=== PATIENT | female | born 1945 | race Caucasian/White ===

== ENCOUNTER 2019-02-10 08:01 | Inpatient (IN) | payer MEDICARE, BC ==
[2019-02-04 15:28] LABS: BASOPHILS # (AUTO) 0.1 X10'3 (0-0.2); BASOPHILS % (AUTO) 1.1 % (0-1); EOSINOPHILS # (AUTO) 0.2 X10'3 (0-0.9); EOSINOPHILS % (AUTO) 4.1 % (0-6); LYMPHOCYTES # (AUTO) 1.4 X10'3 (1.1-4.8); LYMPHOCYTES % (AUTO) 26.4 % (21-51); MEAN CORPUSCULAR HEMOGLOBIN 32.2 PG (27.0-31.0); MEAN CORPUSCULAR VOLUME 97.7 FL (78-98); MEAN PLATELET VOLUME 8.2 FL (7.4-10.4); MONOCYTES # (AUTO) 0.6 X10'3 (0-0.9); NEUTROPHILS % (AUTO) 56.4 % (42-75); PRE OP HEMATOCRIT 43.2 % (35.0-45.0); PRE OP HEMOGLOBIN 14.2 g/dL (12.0-16.0); PRE OP PLATELET COUNT 251 X10'3 (140-440); RED BLOOD COUNT 4.42 X10'6 (4.20-5.60); RED CELL DISTRIBUTION WIDTH 13.8 % (11.5-14.5)
[2019-02-04 15:48] LABS: ALBUMIN 3.3 G/DL (3.4-5.0); ALBUMIN/GLOBULIN RATIO 0.9 (1.1-1.5); ALKALINE PHOSPHATASE 121 IU/L (46-116); BLOOD UREA NITROGEN 23 MG/DL (7-18); CALCIUM 9.2 MG/DL (8.5-10.1); CHLORIDE 107 MMOL/L (99-107); CREATININE 0.92 MG/DL (0.40-0.90); PRE OP ALT 25 U/L (30-65); PRE OP ANION GAP 6 (8-16); PRE OP AST 19 U/L (10-37); PRE OP BILIRUB, TOTAL 0.4 MG/DL (0.0-1.0); PRE OP GLUCOSE 84 MG/DL (70-104); PRE OP POTASSIUM 4.2 MMOL/L (3.4-5.1); PRE OP SODIUM 142 MMOL/L (135-145); TOTAL CARBON DIOXIDE 28.9 MMOL/L (24-32); eGFR 60 ML/MIN
[2019-02-04 16:17] LABS: HEMOGLOBIN A1C 6.3 % (4.5-6.2)
[~2019-02-10] VITALS: Ht 165.1 cm; Wt 88.5 kg
[2019-02-10] VITALS (21 sets, daily range): BP systolic 113–177; BP diastolic 52–85
[~2019-02-10 08:01] MED LIST: ACET-1017 PO; ALEN70TA60 PO; ASPI-529 PO; ATOR80TA PO; CALC-97 PO; CARV-50 PO; FERGLU300T PO; INSU100C10 SQ; LANTUS SUBCUT; LEVO150T8 PO; LOSA25TA96 PO
[2019-02-10] MEDS ORDERED: LIDOcaine 1% (10mg/ml) 2ml vial ONE (09:19)
[2019-02-10] MEDS: dextrose 5%-lactated ringers 1,000 ML IV SCH ×2 (09:41→20:00)
[2019-02-10] MEDS ORDERED: carVEDilol 12.5mg tablet PO ONE (10:00)
[2019-02-10] MEDS ORDERED: acetaminophen 325mg tablet PO ONE (12:00)
[2019-02-10] MEDS ORDERED: cefazolin/dext.iso 2gm/50ml 50 ML IV ONE (12:00)
[2019-02-10] MEDS ORDERED: oxyCODONE SR 10mg (sust. release) tab PO ONE (12:00)
[2019-02-10] MEDS ORDERED: metoclopramide 5 mg/ml inj IV ONE (12:00)
[2019-02-10] MEDS ORDERED: vancomycin inj 1,500 MG in normal saline 300ml IV soln IV ONE (12:00)
[2019-02-10] MEDS ORDERED: famotidine 20mg tablet PO ONE (12:00)
[2019-02-10] MEDS ORDERED: insulin Lispro (HumaLOG) vial - multi-dose SQ ONE (12:00)
[2019-02-10] MEDS ORDERED: DOCUMENT DATE & TIME OF BETA-BLOCKER PO ONE (12:00)
[2019-02-10] MEDS ORDERED: gabapentin 300mg capsule PO ONE (12:00)
[2019-02-10] MEDS ORDERED: tranexamic acid inj. 1,000 MG in normal saline 100 ML IV ONE (12:00)
[2019-02-10] MEDS ORDERED: ringers solution, lacted 1,000 ML IV SCH ×2 (12:00→14:20)
[2019-02-10] MEDS ORDERED: vancomycin 1,000mg inj ONE (12:29)
[2019-02-10] MEDS ORDERED: ceFAZolin 1000mg inj ONE (12:29)
[2019-02-10] MEDS ORDERED: midazolam 2 mg/2 ml injection ONE (12:39)
[2019-02-10] MEDS ORDERED: fentaNYL/PF 50MCG/1 ML 2ML syringe ONE (12:39)
[2019-02-10] MEDS ORDERED: LIDOcaine 2% (20mg/ml) 5ml vial ONE (12:40)
[2019-02-10] MEDS ORDERED: propofol inj 20 ML IV ONE (12:40)
[2019-02-10] MEDS ORDERED: ROPIVAcaine 0.5% (5mg/ml) 30ml vial ONE (12:40)
[2019-02-10] MEDS ORDERED: sevoflurane 250ml liquid IH ONE (12:42)
[2019-02-10] MEDS ORDERED: INSULIN R 100 UNIT in NS 100ML (1 UNIT/1 ML) BAG IV ONE (12:42)
[2019-02-10] MEDS ORDERED: ePHEDrine 50MG/ML INJ. ONE (13:41)
[2019-02-10] MEDS ORDERED: phenylephrine 10mg/ml inj. ONE (13:43)
[2019-02-10] MEDS ORDERED: ondansetron/PF 4mg/2ml inj ONE (13:59)
[2019-02-10] MEDS ORDERED: morphine 4 MG/ML inj SYRINge IV PRN ×2 (14:20)
[2019-02-10] MEDS ORDERED: ondansetron/PF 4mg/2ml inj IV PRN ×2 (14:20→15:25)
[2019-02-10] MEDS ORDERED: fentaNYL/PF 50MCG/1 ML 2ML syringe IV PRN ×2 (14:20)
[2019-02-10] MEDS ORDERED: labetalol 20mg/4ml (5mg/ml) syringe IV PRN (14:20)
[2019-02-10] MEDS ORDERED: ROPIVAcaine 0.2%/PF PAIN PUMP 400 ML IJ SCH (14:37)
[2019-02-10] MEDS ORDERED: dexamethasone sod phosphate 4mg/ml inj. ONE (15:23)
[2019-02-10] MEDS ORDERED: acetaminophen 325mg tablet PO PRN (15:25)
[2019-02-10] MEDS ORDERED: bisacodyl 10mg suppository rectal RC PRN (15:25)
[2019-02-10] MEDS ORDERED: diphenhydrAMINE 25mg capsule PO PRN ×2 (15:25)
[2019-02-10] MEDS ORDERED: magnesium hydroxide 30ml (MOM) UD suspension PO PRN (15:25)
[2019-02-10] MEDS ORDERED: HYDROmorphone inj. 0.5 MG/0.5 ML DISP.SYRIN IV PRN (15:25)
[2019-02-10] MEDS ORDERED: oxyCODONE IR 5mg (immed. release) tablet PO PRN ×2 (15:25)
[2019-02-10] MEDS ORDERED: HYDROmorphone 1 mg/ml syringe IV PRN (15:25)
[2019-02-10] MEDS ORDERED: labetalol 20mg/4ml (5mg/ml) syringe IV ONE (15:27)
--- NOTE | 2019-02-10 15:37 | NUR ---
Received from OR via , accompanied by Anesthesiologist DR WILLIS and report given by Anesthesiologist. PT DROWSY, DENIES PAIN, RIGHT SHOULDER W/DRSG, ICE PACK, SHOULDER WRAP, CDI, SLING. PT HAS CONTINUOUS BLOOD GLUCOSE MONITORING DEVICE IN LEFT UPPER ABDOMEN, MONITOR DISPLAYS BS 94. Addendum: 02/10/19 at 1611 by Carol Adan RN Amended: Links added.
[2019-02-10] MEDS: hydrALAZINE 20mg/ml inj. IV PRN ×2 (15:57→16:12)
--- NOTE | 2019-02-10 16:29 | NUR ---
RECEIVED REPORT FROM AMEYA CRUM IN RECOVERY
--- NOTE | 2019-02-10 17:03 | NUR ---
PT ARRIVED ON FLOOR ON ORTHO BED
--- NOTE | 2019-02-10 17:05 | NUR ---
PT HAS HER OWN INSULIN PUMP, PUMP SHOWED THAT PT BG IS 103 AT THIS TIME, CONTINUE TO MONITOR
--- NOTE | 2019-02-10 17:07 | NUR ---
Report called to receiving nurse. Transferred via BED, 1 BAG OF PERSONAL Belongings, GLASSES SENT W/PT TO ROOM 4009B, RECEIVING RN AT BEDSIDE TO RECEIVE PT, BLL, CALL LIGHT GIVEN, SIDE RAILS UP X 2, BS 96 PER PTS MONITORING DEVICE. Special Issues communicated to receiving nurse. YES. Addendum: 02/10/19 at 1715 by Carol Adan RN Amended: Links added.
[2019-02-10] MEDS: ceFAZolin 1GM/D5W- ADD-VANTAGE 50 ML IV SCH (17:13)
--- NOTE | 2019-02-10 18:34 | NUR ---
GAVE REPORT TO AMEYA JOHNSON
[2019-02-10] MEDS: potassium cl 20mEq in 1/2 NS 1,000 ML IV SCH ×2 (19:41→23:25)
[2019-02-10] MEDS ORDERED: vancomycin/NS 1 GM ADD-VANTAGE 250 ML IV SCH (20:00)
[2019-02-10] MEDS: carVEDilol 12.5mg tablet PO SCH (20:42)
[2019-02-10] MEDS: acetaminophen 325mg tablet PO SCH (20:44)
[2019-02-10] MEDS ORDERED: atorvastatin 20mg tablet PO SCH (21:00)
[2019-02-10] MEDS ORDERED: insulin glargine (Lantus) pen - multi-dose SQ SCH (21:00)
[2019-02-10] MEDS ORDERED: sennosides 8.6mg tablet PO SCH (21:00)
[2019-02-10] MEDS: gabapentin 300mg capsule PO SCH (21:06)
[2019-02-11] MEDS: ceFAZolin 1GM/D5W- ADD-VANTAGE 50 ML IV SCH
[2019-02-11] MEDS ORDERED: ceFAZolin 1GM/D5W- ADD-VANTAGE 50 ML IV SCH (01:45)
[2019-02-11 02:00] VITALS: BP 129/57
[2019-02-11] MEDS: acetaminophen 325mg tablet PO SCH ×3 (02:05→11:13)
[2019-02-11 03:13] VITALS: BP 129/57
[2019-02-11] MEDS: dextrose 5%-lactated ringers 1,000 ML IV SCH ×2 (04:00→12:00)
[2019-02-11] MEDS: insulin Lispro (HumaLOG) vial - multi-dose SQ SCH ×2 (05:25→08:56)
[2019-02-11] MEDS: potassium cl 20mEq in 1/2 NS 1,000 ML IV SCH (05:35)
--- NOTE | 2019-02-11 06:00 | NUR ---
Patient in room ORTHO 4009. I have received report from [place] and had the opportunity to ask questions and assume patient care.
[2019-02-11 06:10] LABS: BASOPHILS % (AUTO) 0.1 % (0-1); EOSINOPHILS % (AUTO) 0 % (0-6); HEMATOCRIT 39.5 % (35.0-45.0); HEMOGLOBIN 13.1 g/dl (12.0-16.0); LYMPHOCYTES # (AUTO) 0.6 X10'3 (1.1-4.8); LYMPHOCYTES % (AUTO) 7.5 % (21-51); MEAN CORPUSCULAR HEMOGLOBIN 32.5 PG (27.0-31.0); MEAN CORPUSCULAR HGB CONC 33.1 g/dL (33.0-36.5); MEAN CORPUSCULAR VOLUME 98.1 FL (78-98); MEAN PLATELET VOLUME 8.4 FL (7.4-10.4); MONOCYTES # (AUTO) 0.4 X10'3 (0-0.9); MONOCYTES % (AUTO) 4.6 % (2-12); NEUTROPHILS # (AUTO) 7.1 X10'3 (1.8-7.7); NEUTROPHILS % (AUTO) 87.8 % (42-75); PLATELET COUNT 228 X10'3 (140-440); RED BLOOD COUNT 4.02 X10'6 (4.20-5.60); RED CELL DISTRIBUTION WIDTH 13.8 % (11.5-14.5); WHITE BLOOD COUNT 8.1 X10'3 (4.5-11.0)
[2019-02-11 06:17] VITALS: BP 119/53
[2019-02-11 06:18] LABS: ANION GAP 14 (8-16); CHLORIDE 102 MMOL/L (99-107); POTASSIUM 5.8 MMOL/L (3.5-5.1); SODIUM 134 MMOL/L (135-145); TOTAL CARBON DIOXIDE 18.1 MMOL/L (24-32)
[2019-02-11] MEDS ORDERED: levoTHYROXINE 75mcg tablet PO SCH (07:00)
[2019-02-11] MEDS ORDERED: acetaminophen 325mg tablet PO SCH (08:00)
[2019-02-11] MEDS ORDERED: ferrous gluconate 324mg tablet PO SCH (08:00)
[2019-02-11] MEDS ORDERED: losartan 50mg tablet PO SCH (08:00)
[2019-02-11] MEDS ORDERED: calcium carbonate/vitamin D3 tablet PO SCH (08:00)
[2019-02-11] MEDS: gabapentin 300mg capsule PO SCH (08:02)
[2019-02-11] MEDS ORDERED: aspirin 81mg tab.chew PO SCH (08:30)
[2019-02-11] MEDS ORDERED: aspirin 325mg tablet PO SCH (08:30)
[2019-02-11] MEDS: carVEDilol 12.5mg tablet PO SCH (08:47)
[2019-02-11] MEDS ORDERED: [UNRECOGNIZED DRUG - REMARK] PO NR (10:00)
[2019-02-11 10:07] VITALS: BP 137/72
--- NOTE | 2019-02-11 11:45 | NUR ---
Reviewed discharge instructions with pt. Pt verbalized understanding. Pt is alert, oriented and does not have c/o pain at this time. All of pt's belongings were returned to pt. Pt was wheeled downstairs to be driven home by her sister.
[2019-02-11] MEDS ORDERED: celeCOXIB 100mg capsule PO SCH (20:00)
[2019-02-12] MEDS ORDERED: acetaminophen 325mg tablet PO PRN (15:25)
== END 2019-02-11 12:05 | disposition home or self-care (01) | DRG 483 ==
LOC: PAS IN 08:01 → EDSTATUS 12:45 → ORTHO 4S 17:03
PROVIDERS: ADMIT Orthopaedic Surgery; ATTEND Orthopaedic Surgery
PROC: 3E0T3BZ Introduction of Anesthetic Agent into Peripheral Nerves and Plexi, Percutaneous Approach (ICD-10-PCS; 2019-02-10)
PROC: 0RRJ0JZ Replacement of Right Shoulder Joint with Synthetic Substitute, Open Approach (ICD-10-PCS; principal; 2019-02-10 12:42)
DX: M19.011 Primary osteoarthritis, right shoulder (principal); E03.9 Hypothyroidism, unspecified; E78.5 Hyperlipidemia, unspecified; I10 Essential (primary) hypertension; E10.9 Type 1 diabetes mellitus without complications; E66.9 Obesity, unspecified; M81.0 Age-related osteoporosis without current pathological fracture; Q68.8 Other specified congenital musculoskeletal deformities; Z85.3 Personal history of malignant neoplasm of breast; Z90.12 Acquired absence of left breast and nipple; Z68.32 Body mass index [BMI] 32.0-32.9, adult; Z88.2 Allergy status to sulfonamides; Z88.5 Allergy status to narcotic agent; Z79.899 Other long term (current) drug therapy; Z79.4 Long term (current) use of insulin; Z79.890 Hormone replacement therapy
CPT/HCPCS: 36415; 73020; 73030; 80051; 80053; 83036; 84443; 85025; 87081; 93005; 97110; 97116; 97161; A4215; A4565; A4618; A7000; C1713; C1776; C9250; G0378; J0360; J0690; J1100; J1815; J2001; J2250; J2370; J2405; J2704; J2765; J2795; J3010; J3370; J3480; J3490; J7120; J7121

== ENCOUNTER 2019-11-26 18:03 | Inpatient (IN) | payer MEDICARE, BC ==
[~2019-11-26] VITALS: Ht 165.1 cm; Wt 78.2 kg
[2019-11-26] MEDS ORDERED: normal saline 1000ml 1,000 ML IV ONE (20:10)
[2019-11-26 20:16] LABS: PARTIAL THROMBOPLASTIN TIME 23 SECONDS (22-32)
--- NOTE | 2019-11-26 20:20 | NUR ---
PT GIVEN WARM BLANKETS
[2019-11-26 20:28] LABS: ALANINE AMINOTRANSFERASE 17 U/L (12-78); ALBUMIN/GLOBULIN RATIO 0.9 (1.1-1.5); ALKALINE PHOSPHATASE 88 IU/L (46-116); ANION GAP 10 (8-16); ASPARTATE AMINO TRANSFERASE 22 U/L (10-37); BILIRUBIN,TOTAL 0.4 MG/DL (0.1-1.0); BLOOD UREA NITROGEN 19 MG/DL (7-18); BUN/CREATININE RATIO 9.7 (6.6-38.0); CALCIUM 9.4 MG/DL (8.5-10.1); CHLORIDE 106 MMOL/L (99-107); CREATININE 1.96 MG/DL (0.40-0.90); GLUCOSE 213 MG/DL (70-104); POTASSIUM 4.3 MMOL/L (3.5-5.1); SODIUM 139 MMOL/L (135-145); TOTAL CARBON DIOXIDE 22.6 MMOL/L (24-32); TOTAL PROTEIN 6.3 G/DL (6.4-8.2); TROPONIN I 0.15 NG/ML (0.0-0.05); eGFR 25 ML/MIN
--- NOTE | 2019-11-26 21:46 | NUR ---
[facility] [phone]
[2019-11-26] MEDS ORDERED: aspirin 325mg tablet PO ONE (21:50)
[2019-11-26 22:08] LABS: BASOPHILS % (AUTO) 0.7 % (0-1); EOSINOPHILS % (AUTO) 0.6 % (0-6); HEMATOCRIT 36.4 % (35.0-45.0); LYMPHOCYTES # (AUTO) 0.8 X10'3 (1.1-4.8); LYMPHOCYTES % (AUTO) 18.3 % (21-51); MEAN CORPUSCULAR HEMOGLOBIN 38.3 PG (27.0-31.0); MEAN CORPUSCULAR HGB CONC 32.9 g/dL (33.0-36.5); MEAN CORPUSCULAR VOLUME 116.3 FL (78-98); MEAN PLATELET VOLUME 7.7 FL (7.4-10.4); MONOCYTES # (AUTO) 0.3 X10'3 (0-0.9); MONOCYTES % (AUTO) 7.9 % (2-12); NEUTROPHILS # (AUTO) 3.2 X10'3 (1.8-7.7); NEUTROPHILS % (AUTO) 72.5 % (42-75); PLATELET COUNT 163 X10'3 (140-440); RED BLOOD COUNT 3.13 X10'6 (4.20-5.60); RED CELL DISTRIBUTION WIDTH 15.3 % (11.5-14.5); WHITE BLOOD COUNT 4.4 X10'3 (4.5-11.0)
[2019-11-26] MEDS ORDERED: heparin 25,000 UNIT/250ml bag 250 ML IV SCH (22:29)
[2019-11-26] MEDS ORDERED: heparin 10,000 units/1 ML INJ IV ONE (22:30)
[2019-11-26] MEDS ORDERED: heparin 10,000 units/1 ML INJ IV PRN (22:30)
[2019-11-26 22:38] LABS: PLATELET ESTIMATE NORMAL
[2019-11-26 23:28] LABS: CLARITY,URINE CLEAR (Clear); COLOR,URINE YELLOW (Yellow); GLUCOSE, URINE 250 mg/dl (Neg); KETONES,URINE 40 mg/dl (Neg); LEUKOCYTE ESTERASE ,URINE TRACE (Neg); NITRITES, URINE NEGATIVE (Neg); OCCULT BLOOD,URINE NEGATIVE (Neg); PH,URINE 5.5 (4.8-8.0); PROTEIN,URINE NEGATIVE (Neg); UROBILINOGEN,URINE 0.2 E.U/dL (0.2-1.0)
[2019-11-26 23:31] LABS: UA COLLECTION TYPE CLN CATCH MIDSTREAM
[2019-11-26 23:32] LABS: BACTERIA,URINE FEW /HPF (Neg); HYALINE CASTS 0-3 /LPF (NEGATIVE); MUCUS STRANDS FEW /LPF (Neg); RBC,URINE 0-2 /HPF (0-2); SQUAMOUS EPITHELIAL CELL,UR FEW /LPF (FEW)
[2019-11-26] MEDS ORDERED: ABEM150T PO (23:49)
[2019-11-26] MEDS ORDERED: LEVO150T61 PO (23:49)
[2019-11-26] MEDS ORDERED: LETR2.5T7 PO (23:49)
[2019-11-26] MEDS ORDERED: FURO20TA4 PO (23:49)
[2019-11-27] MEDS ORDERED: potassium Cl 20 mEq SR tablet PO PRN ×2 (01:25)
[2019-11-27] MEDS ORDERED: dextrose ORAL solution 15 GM/59 ML bottle PO PRN ×2 (01:25)
[2019-11-27] MEDS ORDERED: glucagon, human recombinant 1mg kit SUBCUT PRN (01:25)
[2019-11-27] MEDS ORDERED: acetaminophen 325mg tablet PO PRN (01:25)
[2019-11-27] MEDS ORDERED: MESSAGE TO PHARMACY PO ONE (01:25)
[2019-11-27] MEDS ORDERED: potassium CL 10mEq/100ml bag 100 ML IV PRN ×2 (01:25)
[2019-11-27] MEDS ORDERED: ondansetron/PF 4mg/2ml inj IV PRN (01:25)
[2019-11-27] MEDS ORDERED: dextrose 50%-water 50ml dispensing syringe IV PRN ×2 (01:25)
[2019-11-27] MEDS ORDERED: mag hydrox/Alum hydrox/simeth 30ml oral suspension PO PRN (01:25)
[2019-11-27] MEDS ORDERED: magnesium hydroxide 30ml (MOM) UD suspension PO PRN (01:25)
[2019-11-27] MEDS: normal saline 1000ml 1,000 ML IV SCH ×3 (01:53→21:29)
--- NOTE | 2019-11-27 02:30 | NUR ---
Patient in room ED 15. I have received report from AMEYA Ragland and had the opportunity to ask questions and assume patient care.
[2019-11-27 03:54] VITALS: BP 131/38
[2019-11-27 05:30] LABS: HEMOGLOBIN A1C 6.5 % (4.5-6.2)
[2019-11-27 05:46] LABS: BASOPHILS % (AUTO) 1.4 % (0-1); EOSINOPHILS % (AUTO) 1.1 % (0-6); HEMATOCRIT 29.4 % (35.0-45.0); HEMOGLOBIN 9.9 g/dl (12.0-16.0); LYMPHOCYTES # (AUTO) 0.8 X10'3 (1.1-4.8); LYMPHOCYTES % (AUTO) 23.1 % (21-51); MEAN CORPUSCULAR HEMOGLOBIN 38.2 PG (27.0-31.0); MEAN CORPUSCULAR HGB CONC 33.7 g/dL (33.0-36.5); MEAN CORPUSCULAR VOLUME 113.2 FL (78-98); MEAN PLATELET VOLUME 8.1 FL (7.4-10.4); MONOCYTES # (AUTO) 0.3 X10'3 (0-0.9); MONOCYTES % (AUTO) 9.3 % (2-12); NEUTROPHILS # (AUTO) 2.3 X10'3 (1.8-7.7); NEUTROPHILS % (AUTO) 65.1 % (42-75); PLATELET COUNT 175 X10'3 (140-440); RED CELL DISTRIBUTION WIDTH 14.6 % (11.5-14.5); WHITE BLOOD COUNT 3.5 X10'3 (4.5-11.0)
--- NOTE | 2019-11-27 06:10 | NUR ---
Patient in room PCU 3012. I have received report from Angela and had the opportunity to ask questions and assume patient care.
--- NOTE | 2019-11-27 06:32 | NUR ---
Problems reprioritized. Patient report given, questions answered & plan of care reviewed with AMEYA Turk.
--- NOTE | 2019-11-27 07:00 | NUR ---
Lab called PTT from 0507 was inconclusive. Notified that someone will be sent up for a redraw on opposite arm.
[2019-11-27] MEDS: heparin, porcine 5000 units/ml vial SQ SCH ×2 (08:00→21:13)
[2019-11-27] MEDS ORDERED: ABEMACICLIB 150 MG PO SCH (08:00)
[2019-11-27] MEDS: K and/or MAG REPLACEMENT MC SCH ×2 (08:00→20:00)
[2019-11-27] MEDS: ABEMACICLIB 150 MG PO SCH (08:00)
[2019-11-27] MEDS: ferrous gluconate 324mg tablet PO SCH (09:02)
[2019-11-27] MEDS: losartan 50mg tablet PO SCH (09:02)
[2019-11-27] MEDS: calcium carbonate/vitamin D3 tablet PO SCH (09:02)
[2019-11-27] MEDS: levoTHYROXINE 75mcg tablet PO SCH (09:02)
[2019-11-27] MEDS: carVEDilol 12.5mg tablet PO SCH ×2 (09:02→21:11)
[2019-11-27] MEDS: furosemide 20MG tablet PO SCH (09:03)
[2019-11-27] MEDS: aspirin 81mg tablet.DR PO SCH (09:03)
[2019-11-27] MEDS: insulin Lispro (HumaLOG) vial - multi-dose SQ SCH ×3 (09:14→19:07)
[2019-11-27 09:34] LABS: CHOL/HDL RATIO 1.9 (0.00-4.99); CHOLESTEROL 116 MG/DL (0-200); HDL CHOLESTEROL 62 MG/DL (35-60); LDL CHOLESTEROL 45 MG/DL (50-100); TRIGLYCERIDES 55 MG/DL (20-135)
[2019-11-27 11:00] VITALS: BP 135/35
--- NOTE | 2019-11-27 11:08 | NUR ---
Malnutrition consult: Pt reports wt loss with decreased appetite per malnutrition risk screen with RN. Pt with wt hx of 88.5 kg taken 02/10/19 with standing scale, current standing scaled wt is 78.18 kg. This is non-significant wt loss of 11% in nine months. Pt currently on a CHO controlled diet documented with 75-100% PO intake first meal meeting nutrient needs. Pt with no documented significant decrease in muscle strength or edema. Pt currently lacks a minimum of two criteria for malnutrition. DM consult: Pt found unresponsive at home and CPR was initiated, EMS noted pt with a low BG level of 41 mg/dL per ED report. 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 Pt currently on hyperglycemic protocol and BG levels ranging 155-221 mg/dL since admit. Per H&P patient's T1DM x 60 years has been tightly controlled. Current A1c is 6.5%, slightly up from 6.3% in January of last year per records. DM education not warranted at this time. Will continue to follow. Addendum: 11/27/19 at [address] Amended: Links added.
[2019-11-27 15:00] VITALS: BP 129/31
[2019-11-27 18:00] VITALS: BP 153/43
--- NOTE | 2019-11-27 18:24 | NUR ---
Problems reprioritized. Patient report given, questions answered & plan of care reviewed with Isa HOU.
--- NOTE | 2019-11-27 18:26 | NUR ---
Patient in room PCU 3018. I have received report from Burke HOU and had the opportunity to ask questions and assume patient care.
[2019-11-27] MEDS ORDERED: insulin glargine (Lantus) pen - multi-dose SQ SCH (21:00)
[2019-11-27] MEDS ORDERED: atorvastatin 20mg tablet PO SCH (21:00)
[2019-11-27 22:00] VITALS: BP 144/50
[2019-11-28 02:00] VITALS: BP 150/41
[2019-11-28 06:00] VITALS: BP 148/46
[2019-11-28 06:14] LABS: BASOPHILS # (AUTO) 0.1 X10'3 (0-0.2); EOSINOPHILS # (AUTO) 0.2 X10'3 (0-0.9); HEMOGLOBIN 8.8 g/dl (12.0-16.0); MONOCYTES # (AUTO) 0.3 X10'3 (0-0.9); PLATELET COUNT 172 X10'3 (140-440); WHITE BLOOD COUNT 2.8 X10'3 (4.5-11.0)
[2019-11-28 06:18] LABS: BASOPHILS % (AUTO) 2.8 % (0-1); EOSINOPHILS % (AUTO) 6.2 % (0-6); HEMATOCRIT 26.3 % (35.0-45.0); LYMPHOCYTES % (AUTO) 34.6 % (21-51); MEAN CORPUSCULAR HEMOGLOBIN 37.9 PG (27.0-31.0); MEAN CORPUSCULAR HGB CONC 33.5 g/dL (33.0-36.5); MEAN CORPUSCULAR VOLUME 113.2 FL (78-98); MONOCYTES % (AUTO) 10.7 % (2-12); NEUTROPHILS # (AUTO) 1.3 X10'3 (1.8-7.7); NEUTROPHILS % (AUTO) 45.7 % (42-75); RED BLOOD COUNT 2.32 X10'6 (4.20-5.60); RED CELL DISTRIBUTION WIDTH 14.9 % (11.5-14.5)
[2019-11-28 06:42] LABS: ALANINE AMINOTRANSFERASE 13 U/L (12-78); ALBUMIN 2.4 G/DL (3.4-5.0); ALBUMIN/GLOBULIN RATIO 0.9 (1.1-1.5); ALKALINE PHOSPHATASE 64 IU/L (46-116); ANION GAP 10 (8-16); ASPARTATE AMINO TRANSFERASE 16 U/L (10-37); BILIRUBIN,TOTAL 0.5 MG/DL (0.1-1.0); BLOOD UREA NITROGEN 20 MG/DL (7-18); BUN/CREATININE RATIO 15.3 (6.6-38.0); CALCIUM 8.4 MG/DL (8.5-10.1); CHLORIDE 110 MMOL/L (99-107); CREATININE 1.31 MG/DL (0.40-0.90); GLUCOSE 174 MG/DL (70-104); POTASSIUM 4.4 MMOL/L (3.5-5.1); SODIUM 142 MMOL/L (135-145); TOTAL CARBON DIOXIDE 22.5 MMOL/L (24-32); eGFR 40 ML/MIN
--- NOTE | 2019-11-28 06:44 | NUR ---
Patient in room PCU 3018. I have received report from AMEYA KOHLI and had the opportunity to ask questions and assume patient care.
--- NOTE | 2019-11-28 06:49 | NUR ---
Problems reprioritized. Patient report given, questions answered & plan of care reviewed with Preet RN.
[2019-11-28 07:15] LABS: TOTAL CELLS COUNTED 100
[2019-11-28 07:18] LABS: PLATELET ESTIMATE NORMAL
[2019-11-28 07:19] LABS: ACANTHOCYTES FEW; BURR CELLS FEW; SCHISTOCYTES FEW
[2019-11-28] MEDS: normal saline 1000ml 1,000 ML IV SCH (07:22)
[2019-11-28] MEDS: K and/or MAG REPLACEMENT MC SCH (08:00)
[2019-11-28] MEDS: ABEMACICLIB 150 MG PO SCH (08:00)
[2019-11-28] MEDS: calcium carbonate/vitamin D3 tablet PO SCH (08:48)
[2019-11-28] MEDS: aspirin 81mg tablet.DR PO SCH (08:49)
[2019-11-28] MEDS: levoTHYROXINE 75mcg tablet PO SCH (08:50)
[2019-11-28] MEDS: ferrous gluconate 324mg tablet PO SCH (08:51)
[2019-11-28] MEDS: losartan 50mg tablet PO SCH (08:52)
[2019-11-28] MEDS: carVEDilol 12.5mg tablet PO SCH (08:52)
[2019-11-28] MEDS: furosemide 20MG tablet PO SCH (08:52)
[2019-11-28] MEDS: heparin, porcine 5000 units/ml vial SQ SCH (08:55)
[2019-11-28] MEDS: insulin Lispro (HumaLOG) vial - multi-dose SQ SCH ×2 (09:07→13:35)
--- NOTE | 2019-11-28 10:32 | NUR ---
IN, NOTIFIED OF WBC 2.8.H+H 8.8/26.3.
[2019-11-28 11:00] VITALS: BP 151/40
--- NOTE | 2019-11-28 11:35 | NUR ---
JUST REPORTED TO ME 11 BEAT RUN OF [place] AT 1020. DR. MARIEE NOTIFIED, STAT MG=/PHOS ORDERED.
--- NOTE | 2019-11-28 11:47 | NUR ---
Resource nurse gave me a blood glucose of 108 for the am glucose check. I administered insulin according to the protocol of 3 units for nutritional and 0 units for correctional. I was later informed that the blood glucose was actually 180. I had informed my nurse of the 108 glucose that was told to me. I later noticed that he had written the 108 down with a ? next to the number and then the 180 below it. My nurse and I discussed what had happened with the charge nurse, they informed me that they would rather have me under dose the patient and over dose. I discussed everything with my instructor. the patient did not have any adverse effect from the lower dose she received. Will continue to monitor patient.
--- NOTE | 2019-11-28 12:07 | NUR ---
PAGER ID: [phone] MESSAGE: DR. MARIEE, 3018B/[facility], LAB CALLED, ASKED IF MG+/PHOS CAN BE ADDED ON TO AM LABS, I SAID YES. IF WE NEED A FRESH BLOOD DRAW, PLEASE LET ME KNOW AND I WILL ORDER AGAIN. PIA WAGGONER [phone].
--- NOTE | 2019-11-28 12:34 | NUR ---
PAGER ID: [phone] MESSAGE: DR. MARIEE, 3018B/[facility]. AM ACCUCHECK 180. STUDENT COVERED FOR ACCUCHECK 108. SO NOW ACCUCHECK 260, NEED TO INCREASE TO LEVEL3 AND COVER AFTER LUNCH. PIA [phone],TY
[2019-11-28 12:51] LABS: MAGNESIUM 1.8 MG/DL (1.5-2.4)
[2019-11-28] MEDS ORDERED: magnesium 2GM in 50ml NS 50 ML IV ONE (12:55)
--- NOTE | 2019-11-28 12:56 | NUR ---
PAGER ID: [phone] MESSAGE: DR. MARIEE, 3018B/[place], PHOS 2.0/MG+ 1.8. PIA [phone]. TY
[2019-11-28] MEDS ORDERED: Neutra Phos packet PO SCH (13:00)
--- NOTE | 2019-11-28 16:20 | NUR ---
Student documentation: I have reviewed and agree with all interventions, assessments performed and documented by MARLI BYRD STUDENT.
--- NOTE | 2019-11-28 16:30 | NUR ---
Student Medication Administration: For this medication-pass time frame, all medication were reviewed, dispensed, administered and documented per hospital policy by MARLI BYRD.
== END 2019-11-28 16:19 | disposition home or self-care (01) | DRG 638 ==
LOC: ER 18:04 → ED HOLD 11-27 01:25 → PCU 3S 11-27 03:12
PROVIDERS: ADMIT Internal Medicine; ATTEND Family Medicine
DX: E10.649 Type 1 diabetes mellitus with hypoglycemia without coma (principal); I24.8 Other forms of acute ischemic heart disease; C78.89 Secondary malignant neoplasm of other digestive organs; C79.51 Secondary malignant neoplasm of bone; D64.9 Anemia, unspecified; E10.40 Type 1 diabetes mellitus with diabetic neuropathy, unspecified; E10.22 Type 1 diabetes mellitus with diabetic chronic kidney disease; N18.9 Chronic kidney disease, unspecified; R79.89 Other specified abnormal findings of blood chemistry; C50.919 Malignant neoplasm of unspecified site of unspecified female breast; T45.1X5A Adverse effect of antineoplastic and immunosuppressive drugs, initial encounter; Y92.89 Other specified places as the place of occurrence of the external cause; Z88.2 Allergy status to sulfonamides; Z88.8 Allergy status to other drugs, medicaments and biological substances; Z79.899 Other long term (current) drug therapy; Z79.4 Long term (current) use of insulin; Z85.3 Personal history of malignant neoplasm of breast
CPT/HCPCS: 36415; 71045; 80053; 80061; 81001; 82948; 83036; 83605; 83735; 84100; 84145; 84443; 84484; 85025; 85610; 85730; 87040; 87081; 87088; 93306; 99285; G0378; J1644; J1815; J3475; J7030

== ENCOUNTER 2020-11-13 10:36 | Emergency (ER) | payer MEDICARE, BC ==
[~2020-11-13] VITALS: Ht 177.8 cm; Wt 68.6 kg
[~2020-11-13 10:36] MED LIST changes: +ABEM150T PO; -ACET-1017 PO; -ALEN70TA60 PO; +FURO20TA4 PO; +LETR2.5T7 PO; +LEVO150T61 PO; -LEVO150T8 PO
[2020-11-13] MEDS ORDERED: dextrose 5%-normal saline 1,000 ML IV SCH (10:50)
[2020-11-13] MEDS ORDERED: ondansetron/PF 4mg/2ml inj IV ONE (10:50)
--- NOTE | 2020-11-13 10:54 | NUR ---
[id number]
[2020-11-13 11:07] LABS: BASOPHILS # (AUTO) 0.1 X10'3 (0-0.2); EOSINOPHILS # (AUTO) 0.7 X10'3 (0-0.9); EOSINOPHILS % (AUTO) 18.4 % (0-6); HEMATOCRIT 31.6 % (35.0-45.0); HEMOGLOBIN 10.6 g/dl (12.0-16.0); LYMPHOCYTES # (AUTO) 0.7 X10'3 (1.1-4.8); LYMPHOCYTES % (AUTO) 16.4 % (21-51); MEAN CORPUSCULAR HEMOGLOBIN 38.9 PG (27.0-31.0); MEAN CORPUSCULAR HGB CONC 33.5 g/dL (33.0-36.5); MEAN CORPUSCULAR VOLUME 116.1 FL (78-98); MEAN PLATELET VOLUME 7.7 FL (7.4-10.4); MONOCYTES # (AUTO) 0.5 X10'3 (0-0.9); MONOCYTES % (AUTO) 12.5 % (2-12); NEUTROPHILS % (AUTO) 50.4 % (42-75); PLATELET COUNT 225 X10'3 (140-440); RED BLOOD COUNT 2.72 X10'6 (4.20-5.60); RED CELL DISTRIBUTION WIDTH 14.4 % (11.5-14.5)
[2020-11-13 11:20] LABS: ALANINE AMINOTRANSFERASE 15 U/L (12-78); ALBUMIN 2.8 G/DL (3.4-5.0); ALBUMIN/GLOBULIN RATIO 0.8 (1.1-1.5); ALKALINE PHOSPHATASE 75 IU/L (46-116); ANION GAP 10 (8-16); ASPARTATE AMINO TRANSFERASE 14 U/L (10-37); BILIRUBIN,TOTAL 0.3 MG/DL (0.1-1.0); BLOOD UREA NITROGEN 16 MG/DL (7-18); BUN/CREATININE RATIO 9.5 (6.6-38.0); CALCIUM 8.9 MG/DL (8.5-10.1); CHLORIDE 105 MMOL/L (99-107); CREATININE 1.69 MG/DL (0.40-0.90); GLUCOSE 113 MG/DL (70-104); POTASSIUM 3.8 MMOL/L (3.5-5.1); SODIUM 143 MMOL/L (135-145); TOTAL CARBON DIOXIDE 28.1 MMOL/L (24-32); TOTAL PROTEIN 6.2 G/DL (6.4-8.2); eGFR 30 ML/MIN
[2020-11-13 11:23] LABS: TROPONIN I 0.04 NG/ML (0.0-0.05)
[2020-11-13 11:25] LABS: PLATELET ESTIMATE NORMAL
[2020-11-13 11:26] LABS: BASOPHILS % (AUTO) 1.1 % (0-1)
[2020-11-13 12:36] LABS: ETHANOL < 0.010 GM/DL (0.0-0.010)
[2020-11-13 12:47] VITALS: BP 169/53
--- NOTE | 2020-11-13 12:49 | NUR ---
PATIENT ALERT AND ORIENTED X 4. CONTINUALLY C/O CHILLS AND COVERED WITH WARM BLANKETS. SON AT THE BEDSIDE. IV INFUSING WELL. URINE OBTAINED PER [facility] FOR UA.
[2020-11-13 13:19] LABS: CLARITY,URINE CLEAR (Clear); COLOR,URINE YELLOW (Yellow); GLUCOSE, URINE 100 mg/dl (Neg); KETONES,URINE NEGATIVE (Neg); LEUKOCYTE ESTERASE ,URINE NEGATIVE (Neg); NITRITES, URINE NEGATIVE (Neg); OCCULT BLOOD,URINE NEGATIVE (Neg); PH,URINE 5.5 (4.8-8.0); PROTEIN,URINE NEGATIVE (Neg); UROBILINOGEN,URINE 0.2 E.U/dL (0.2-1.0)
[2020-11-13 13:21] LABS: UA COLLECTION TYPE VOIDED
== END 2020-11-13 14:56 | disposition home or self-care (01) ==
LOC: ER 10:37
DX: E10.649 Type 1 diabetes mellitus with hypoglycemia without coma (principal); C50.912 Malignant neoplasm of unspecified site of left female breast; C79.51 Secondary malignant neoplasm of bone; E86.0 Dehydration; I25.10 Atherosclerotic heart disease of native coronary artery without angina pectoris; E78.00 Pure hypercholesterolemia, unspecified; E03.9 Hypothyroidism, unspecified; E10.22 Type 1 diabetes mellitus with diabetic chronic kidney disease; N18.9 Chronic kidney disease, unspecified; Z85.3 Personal history of malignant neoplasm of breast; Z86.2 Personal history of diseases of the blood and blood-forming organs and certain disorders involving the immune mechanism; Z88.2 Allergy status to sulfonamides; Z88.8 Allergy status to other drugs, medicaments and biological substances; Z79.82 Long term (current) use of aspirin; Z79.4 Long term (current) use of insulin; Z79.899 Other long term (current) drug therapy
CPT/HCPCS: 36415; 71045; 80053; 80320; 81003; 82948; 84484; 85008; 85025; 93005; 96361; 96374; 99285; J2405; J7042

== ENCOUNTER 2024-03-23 11:22 | Emergency (ER) | payer MEDICARE, OTHER ==
[~2024-03-23] VITALS: Ht 165.1 cm; Wt 57.3 kg
[~2024-03-23 11:22] MED LIST changes: +LOSA-415 PO; -LOSA25TA96 PO
[2024-03-23 12:20] LABS: EOSINOPHILS # (AUTO) 0.1 X10'3 (0-0.9); HEMATOCRIT 24.8 % (35.0-45.0); LYMPHOCYTES # (AUTO) 0.5 X10'3 (1.1-4.8); MEAN CORPUSCULAR VOLUME 119.4 FL (78-98); MONOCYTES # (AUTO) 0.2 X10'3 (0-0.9); NEUTROPHILS # (AUTO) 1.2 X10'3 (1.8-7.7); RED BLOOD COUNT 2.08 X10'6 (4.20-5.60); RED CELL DISTRIBUTION WIDTH 15.7 % (11.5-14.5)
[2024-03-23 12:26] LABS: BASOPHILS # (AUTO) 0.1 X10'3 (0-0.2); BASOPHILS % (AUTO) 2.6 % (0-1); EOSINOPHILS % (AUTO) 5.1 % (0-6); HEMOGLOBIN 8.3 g/dl (12.0-16.0); MEAN CORPUSCULAR HEMOGLOBIN 39.7 PG (27.0-31.0); MEAN CORPUSCULAR HGB CONC 33.2 g/dL (33.0-36.5); MEAN PLATELET VOLUME 8.6 FL (7.4-10.4); NEUTROPHILS % (AUTO) 58.3 % (42-75); PLATELET COUNT 205 X10'3 (140-440)
[2024-03-23 12:34] LABS: ALANINE AMINOTRANSFERASE 23 U/L (12-78); ALBUMIN 2.6 G/DL (3.4-5.0); ALBUMIN/GLOBULIN RATIO 0.7 (1.1-1.5); ALKALINE PHOSPHATASE 79 IU/L (46-116); ANION GAP 5 (8-16); ASPARTATE AMINO TRANSFERASE 22 U/L (10-37); BILIRUBIN,TOTAL 0.5 MG/DL (0.1-1.0); BLOOD UREA NITROGEN 14 MG/DL (7-18); BUN/CREATININE RATIO 10.6 (10.0-20.0); CALCIUM 9.3 MG/DL (8.5-10.1); CHLORIDE 106 MMOL/L (99-107); CREATININE 1.32 MG/DL (0.40-0.90); GLUCOSE 106 MG/DL (70-104); POTASSIUM 4.2 MMOL/L (3.5-5.1); SODIUM 138 MMOL/L (135-145); TOTAL CARBON DIOXIDE 26.7 MMOL/L (24-32); TOTAL PROTEIN 6.1 G/DL (6.4-8.2); eCRCL 32 ML/MIN; eGFR 39 ML/MIN
[2024-03-23 12:42] LABS: PRO BRAIN NATRIURETIC PEPTIDE 3042 PG/ML (0-450)
[2024-03-23 12:45] LABS: TOTAL CELLS COUNTED 100
[2024-03-23 12:46] LABS: ACANTHOCYTES 2+; PLATELET ESTIMATE NORMAL; POIKILOCYTOSIS 2+; SCHISTOCYTES 1+
[2024-03-23 12:54] VITALS: TEMP 98.1
[2024-03-23 17:10] VITALS: BP 165/61; PULSE 81; RESP 18; O2SAT 98
== END 2024-03-23 16:55 | disposition home or self-care (01) ==
LOC: ER 11:22
DX: R07.89 Other chest pain (principal); I25.10 Atherosclerotic heart disease of native coronary artery without angina pectoris; E03.9 Hypothyroidism, unspecified; E11.22 Type 2 diabetes mellitus with diabetic chronic kidney disease; E78.00 Pure hypercholesterolemia, unspecified; N18.9 Chronic kidney disease, unspecified; Z88.2 Allergy status to sulfonamides; Z88.6 Allergy status to analgesic agent; Z79.82 Long term (current) use of aspirin; Z79.899 Other long term (current) drug therapy; Z79.4 Long term (current) use of insulin; Z85.3 Personal history of malignant neoplasm of breast
CPT/HCPCS: 36415; 71045; 80053; 83880; 84484; 85007; 85025; 93005; 99285